=== PATIENT | female | born 1990 | race African-American/Black ===

== ENCOUNTER 2020-12-23 20:33 | Emergency (ER) | payer MEDICAID ==
[~2020-12-23] VITALS: Ht 180.3 cm; Wt 200.0 kg
[2020-12-23 21:43] VITALS: BP 119/71
[2020-12-23] MEDS ORDERED: PERTUSS(ACELL),DIPH,TET VAC/PF 0.5 ML SYRINGE IM. ONE (21:45)
== END 2020-12-23 22:12 | disposition home or self-care (01) ==
LOC: EMS 20:40
DX: S61.412A Laceration without foreign body of left hand, initial encounter (principal); W26.0XXA Contact with knife, initial encounter; Y93.89 Activity, other specified; Y92.89 Other specified places as the place of occurrence of the external cause; Y99.8 Other external cause status
CPT/HCPCS: 12001; 90471; 90715; 99283